=== PATIENT | male | born 1985 | race Caucasian/White ===

== ENCOUNTER 2019-02-20 20:53 | Emergency (ER) | payer OTHER ==
[2019-02-20 21:11] VITALS: BP 162/107; TEMP 98.5; BMI 24.8
[2019-02-20 21:27] VITALS: PULSE 119
--- NOTE | 2019-02-20 21:28 | PDOC ---
Rapid Medical Evaluation Chief Complaint: Substance Abuse Time Seen by Provider: 02/20/19 21:02 Medical Evaluation: Vital Signs Temp Pulse Resp BP Pulse Ox 98.5 F 19 L 19 162/107 H 100 02/20/19 21:09 02/20/19 21:09 02/20/19 21:02/20/19 21:02/20/19 21:02/20/19 21:25 I have performed a brief in-person evaluation of this patient. The patient presents with a chief complaint of:diaphoresis w/ dizziness and chills today. H/o ETOH abuse, last drank today and possible ingested crystal meth Pertinent physical exam findings:tachy and hypertensive I have ordered the following:ekg/labs The patient will proceed to the ED for further evaluation. Discharge Disposition - Diagnosis Diaphoresis - Referrals - Patient Instructions - Post Discharge Activity
--- NOTE | 2019-02-20 21:36 | PDOC ---
History of Present Illness - General Chief Complaint: Substance Abuse Stated Complaint: INTOX Time Seen by Provider: 02/20/19 21:02 History Source: Patient Exam Limitations: No Limitations, Intoxication - History of Present Illness Initial Comments: Alin Baeza is a 33 yo M who denies having any pmh who presents to the [facility] ER as a walk in with the chief complaint of intoxication. The patient states he ingested a crystalized pill of ecstacy at 7 pm tonight and came into the Er because he felt extremely hot, dehydrated, would not stop sweating, felt agitated, felt like his heart was beating fast and he was experiencing palpitations. The patient also smoked one joint of marijuana this morning, and had 2 beers today. Patient states he cannot stop drinking water but feels like his mouth is dry. He is nervous that something is wrong with him. Patient denies experiencing any seizures, chest pain, SOB, difficulty breathing , syncope, other illicit co-ingestions, headache, nausea, vomiting, blurry vision, weakness, numbness, tingling, chills, dysuria, frequency, or urgency. PCP: None PSH: None reported Social Hx: Took ecstacy today, drinks a few beers daily, smokes marijuana daily , uses adderall regularly. Allergies: Pollen, NKDA Past History - Past Medical History COPD: No - Suicide/Smoking/Psychosocial Hx Smoking History: Unknown if ever smoked Hx Alcohol Use: Yes Drug/Substance Use Hx: Yes Review of Systems - Review of Systems Able to Perform ROS?: Yes Comments:: CONSTITUTIONAL: Present: diaphoresis Absent: fever, chills, generalized weakness, malaise, loss of appetite HEENT: Present: dry mouth Absent: rhinorrhea, nasal congestion, throat pain, throat swelling, difficulty swallowing, mouth swelling, ear pain, eye pain, visual Changes CARDIOVASCULAR: Present: Palpitations, lightheadedness Absent: chest pain, syncope, irregular heart rate, peripheral edema RESPIRATORY: Absent: cough, shortness of breath, dyspnea with exertion, orthopnea, wheezing, stridor, hemoptysis GASTROINTESTINAL: Absent: abdominal pain, abdominal distension, nausea, vomiting, diarrhea, constipation, melena, hematochezia GENITOURINARY: Absent: dysuria, frequency, urgency, hesitancy, hematuria, flank pain, genital pain MUSCULOSKELETAL: Absent: myalgia, arthralgia, joint swelling SKIN: Absent: rash, itching, pallor HEMATOLOGIC/IMMUNOLOGIC: Absent: easy bleeding, easy bruising, lymphadenopathy, frequent infections ENDOCRINE: Absent: unexplained weight gain, unexplained weight loss, heat intolerance, cold intolerance NEUROLOGIC: Absent: headache, focal weakness or paresthesias, dizziness, unsteady gait, seizure, mental status changes, bladder or bowel incontinence PSYCHIATRIC: Present: Anxiety Absent: depression, suicidal or homicidal ideation, hallucinations. *Physical Exam - Vital Signs Last Vital Signs Temp Pulse Resp BP Pulse Ox 98.5 F 119 H 19 162/107 H 100 02/20/19 21:09 02/20/19 21:09 02/20/19 21:09 02/20/19 21:09 02/20/19 21:09 - Physical Exam Comments: GENERAL: Patient is profusely diaphoretic. Well developed, well nourished. Awake and alert. No acute distress. HEENT: Pupils are very dilated. Dry mouth. Normocephalic, atraumatic. PERRLA, EOMI. No conjunctival pallor. Sclera are non-icteric. Oropharynx is clear. NECK: Supple. Full ROM. No JVD. No thyromegaly. No lymphadenopathy. CARDIOVASCULAR: Tachycardic rate and regular rhythm. No murmurs, rubs, or gallops. Distal pulses are 2+ and symmetric. PULMONARY: No evidence of respiratory distress. Lungs clear to auscultation bilaterally. No wheezing, rales or rhonchi. ABDOMINAL: Hyperactive bowel sounds. Soft. Non-tender. Non-distended. No rebound or guarding. No organomegaly. MUSCULOSKELETAL Normal range of motion at all joints. No bony deformities or tenderness. No CVA tenderness. EXTREMITIES: No cyanosis. No clubbing. No edema. No calf tenderness. SKIN: Profusely diaphoretic. Warm. Normal capillary refill. No rashes. No jaundice. NEUROLOGICAL: Alert, awake, appropriate. Cranial nerves 2-12 intact. No deficits to light touch in face, upper extremities and lower extremities. No motor deficits in the in face, upper extremities and lower extremities. Normal speech. Gait is normal without ataxia. PSYCHIATRIC: Mildly anxious. Cooperative. Good eye contact. Appropriate mood and affect. Heart Score/ECG Review - ECG Intrepretation Rhythm: Regular Rhythm - Monrovia Monrovia: Right [place] Deviation - P and WI Prominent R with upright T in V1 (true posterior ID): No Delta Wave(s) Present: No WPW: No - QRS Poor R Wave Progression: No Q Wave Present: No - ST and T Early Repolarization: Yes Non Specific ST-T Wave changes: No Flattened T Waves: No Prolonged Q-T Interval: No - ECG Impressions Normal ECG: No Non-specific ST Elevation: No Ischemic Changes: No Torsades carolyn Pointes: No WPW: No ED Treatment Course - LABORATORY CBC & Chemistry Diagram: 02/20/19 22:00 02/20/19 22:00 Medical Decision Making - Medical Decision Making Alin Baeza is a 33 yo M who denies having any pmh who presents to the [facility] ER as a walk in with the chief complaint of intoxication. The patient states he ingested a crystalized pill of ecstacy at 7 pm tonight and came into the Er because he felt extremely hot, dehydrated, would not stop sweating, felt agitated, felt like his heart was beating fast and he was experiencing palpitations. The patient also smoked one joint of marijuana this morning, and had 2 beers today. Patient states he cannot stop drinking water but feels like his mouth is dry. He is nervous that something is wrong with him. Vital Signs Temp Pulse Resp BP Pulse Ox 98.5 F 119 H 19 162/107 H 100 02/20/19 21:09 02/20/19 21:09 02/20/19 21:09 02/20/19 21:09 02/20/19 21:09 - Repeat HR at bedside 77 after 1L NS DDx IBNLT: electrolyte/metabolic disturbance, dehydration, hyponatremia, SIADH, hyperthermia, Serotonin syndrome, hyperthermia, seizures, hallucinations. Plan: Labs, Urine, EKG, IV hydration, libirum, re-assess. Labs: Normal with no acute abnormalities. Normal sodium level. No evidence of dehydration. Urine: Clean with no abnormalities or signs of acute infection. Urine tox: Positive for marijuana, amphetamines, and ecstacy EKG: NS rate of 71, narrow complexes, RAD, no hypertrophy, no ST elevations or depressions, no abnormal TWI, WI - 192, QTc - 434. Re-assess: Patient no longer feels agitated, has no more palpitations, is not sweating anymore, does not feel hot or overheated, is urinating and no longer feels dehydrated. Disposition: Home with PCP fu. - Strict return precautions - Drug abuse counsil provided. *DC/Admit/Observation/Transfer Diagnosis at time of Disposition: Diaphoresis, Ecstasy abuse, Tachycardia, Agitation, Anxiety about health Hypertension Qualifiers: Hypertension type: other secondary hypertension Qualified Code(s): I15.8 - Other secondary hypertension - Discharge Dispostion Disposition: HOME Condition at time of disposition: Improved Decision to Admit order: No - Referrals Referrals: [facility] [place] [facility] [Provider Group] - Patient Instructions Printed Discharge Instructions: Lifestyle Changes as Effective as Drugs in Preventing Progression to Diabet, Are You Taking Drugs You Don't Need?, Drugs That May Lead to Heart Damage, DI for Adverse Drug Reaction -- Allergic Additional Instructions: You came into the ER after taking ecstacy. We looked at your blood and urine and found no abnormalities. We gave you IV hydration to make sure you are not dehydrated. We also did an electrocardiogram which showed that you have what is called a rightward heart axis. This is probably not something to worry about at the present time but it is something that is important to follow up with with your doctor. We handed you a copy of your EKG to give to your doctor and discuss this EKG with your primary care doctor in the next 3 to 5 days. Please do your best to stop using illicit drugs. If you would like to goto a de- tox center come back at anytime and we will direct you to one. We are giving you the number for a primary doctor to call up and establish care with. Please make sure to call up the number we are providing you with and set up an appointment. Come back to the ER immediately if your symptoms worsen, you have chest pain, have a seizure, hallucinate, feel extremely anxious or agitated, or have any other new or worsening concerns. Thank you for coming to the [facility] ER. We hope you feel better soon! Print Language: SWEDISH - Post Discharge Activity
[2019-02-20] MEDS ORDERED: chlordiazePOXIDE HCL 25 MG CAPSULE PO ONE (21:45)
[2019-02-20] MEDS ORDERED: SODIUM CHLORIDE 0.9% 500 ML INFUS.BAG IV ONE (21:45)
[2019-02-20] MEDS ORDERED: chlordiazePOXIDE HCL 25 MG CAPSULE ONE (22:14)
[2019-02-20 22:19] LABS: BASO % 0.3 % (0-2.0); EOS % 2.3 % (0-4.5); HEMATOCRIT 45.8 % (35.4-49); HEMOGLOBIN 15.7 GM/dL (11.7-16.9); LYMPH % 32.3 % (8-40); MCH 31.3 pg (25.7-33.7); MCHC 34.3 g/dl (32.0-35.9); MEAN CELL VOLUME 91.2 fl (80-96); MEAN PLT VOLUME 8.9 fl (7.5-11.1); MONO % 14.3 % (3.8-10.2); NEUT % 50.8 % (42.8-82.8); PLATELET COUNT 225 K/MM3 (134-434); RBC 5.02 M/mm3 (4.00-5.60); RDW 13.3 % (11.9-15.9); WHITE BLOOD COUNT 7.4 K/mm3 (4.0-10.0)
[2019-02-20 22:33] LABS: INR 0.96 (0.83-1.09); PROTHROMBIN TIME (PATIENT) 11.3 SEC (9.7-13.0)
[2019-02-20] MEDS ORDERED: DEXTROSE 5%-NORMAL SALINE 1,000 ML IV ONE (22:36)
[2019-02-20 22:43] LABS: EPI CELLS 0.2 /HPF (0-5/HPF); HYALINE CASTS 8 /lpf (0-8); PH,URINE 6.5 (5.0-8.0); URINE APPEARANCE TURBID; URINE BACTERIA 6.3 /hpf (NEGATIVE); URINE BILIRUBIN NEGATIVE (NEGATIVE); URINE COLOR YELLOW; URINE GLUCOSE (UA) NEGATIVE (NEGATIVE); URINE KETONE NEGATIVE (NEGATIVE); URINE LEUK ESTERASE NEGATIVE (NEGATIVE); URINE NITRITE NEGATIVE (NEGATIVE); URINE PROTEIN NEGATIVE (NEGATIVE); URINE RBC 2 /hpf (0-4); URINE UROBILINOGEN 0.2 mg/dL (0.2-1.0); URINE WBC 0 /hpf (0-5)
[2019-02-20 22:44] LABS: ALBUMIN 4.2 g/dl (3.4-5.0); BILIRUBIN,TOTAL 0.3 mg/dL (0.2-1); BLOOD UREA NITROGEN 12.9 mg/dL (7-18); CREATININE 1.2 mg/dL (0.55-1.3); POTASSIUM 4.2 mmol/L (3.5-5.1); TOT PROT 7.8 g/dl (6.4-8.2)
--- NOTE | 2019-02-20 23:11 | PDOC ---
Documentation entered by Shiraz Sharma SCRIBE, acting as scribe for Francisco Javier Muñoz MD. Francisco Javier Muñoz MD: This documentation has been prepared by the archieeZachary Elijah, SCRIBE, under my direction and personally reviewed by me in its entirety. I confirm that the documentation accurately reflects all work, treatment, procedures, and medical decision making performed by me. Attending Attestation - Resident Resident Name: Alexandro Hanson - ED Attending Attestation I have performed the following: I have examined & evaluated the patient, The case was reviewed & discussed with the resident, I agree w/resident's findings & plan, Exceptions are as noted - HPI HPI: 02/20/19 22:53 Patient is a 33 year old male with no reported past medical history who presents to the ED with intoxication. Patient reports taking ecstasy x3 hours ago and began to feel agitated, hot, sweaty, dehydrated, and feel his heart racing. Patient was worried that there was becoming anxious after taking these drugs which prompted the visit to the ED. Patient also noted he smoked a joint of marijuana and drank 2 beers today. Denies cough, sob, headache, nausea, and vomiting. Allergies: NKDA Social History: Uses Marijuana and Adderall regularly - Physicial Exam PE: 02/20/19 22:56 GENERAL: Awake, alert, and fully oriented, in no acute distress. Anxious. Mildly diaphoretic. HEAD: No signs of trauma. Pupils dilated but reactive. ENT: Hearing grossly normal. NECK: Normal ROM. Supple. LUNGS: Breath sounds equal, clear to auscultation bilaterally. No wheezes, and no crackles HEART: Regular rate and rhythm, normal S1 and S2, no murmurs, rubs or gallops ABDOMEN: Soft, nontender. No guarding, no rebound. EXTREMITIES: Normal range of motion, no edema. No clubbing or cyanosis. No cords, erythema, or tenderness NEUROLOGICAL: Cranial nerves II through XII grossly intact. Normal speech. SKIN: Warm, Dry. No rashes or lesions noted. - Medical Decision Making 02/20/19 23:05 A portion of this note was documented by [employer] under my direction. I have reviewed the details of the note, within reason, and agree with the documentation with the following case summary and management plan written by me. Patient treated in the ED. Nursing notes are reviewed and incorporated into the medical decision-making. Vital signs reviewed. Peripheral IV access obtained by the nurse, laboratory studies are drawn and sent, reviewed and interpreted by myself. Vital Signs Temp Pulse Resp BP Pulse Ox 98.5 F 119 H 19 162/107 H 100 02/20/19 21:09 02/20/19 21:09 02/20/19 21:09 02/20/19 21:09 02/20/19 21:09 This is a 33-year-old male with multiple poly-ingestions including ecstasy, alcohol and marijuana. The patient is intoxicated medications but otherwise not agitated at this moment. Patient has dilated pupils tachycardia high, hypertension, diaphoresis consistent with sympathomimetic features. I agree with the plan to give is a denies pains in monitor patient and draw blood work. Once the patient is sober the patient be discharged home if the workup is unremarkable. 02/20/19 23:39 Pt is much more sober and alert and ambulatory. He is requesting to go home with his friend. CBC, BMP 02/20/19 22:00 02/20/19 22:00 CMP Sodium 136 mmol/L (136-145) 02/20/19 22:00 Potassium 4.2 mmol/L (3.5-5.1) 02/20/19 22:00 Chloride 101 mmol/L (98-107) 02/20/19 22:00 Carbon Dioxide 28 mmol/L (21-32) 02/20/19 22:00 Anion Gap 8 MMOL/L (8-16) 02/20/19 22:00 BUN 12.9 mg/dL (7-18) 02/20/19 22:00 Creatinine 1.2 mg/dL (0.55-1.3) 02/20/19 22:00 Est GFR (CKD-EPI)AfAm 91.53 02/20/19 22:00 Est GFR (CKD-EPI)NonAf 78.97 02/20/19 22:00 Random Glucose 103 mg/dL (74-106) 02/20/19 22:00 Calcium 9.0 mg/dL (8.5-10.1) 02/20/19 22:00 Total Bilirubin 0.3 mg/dL (0.2-1) 02/20/19 22:00 AST 34 U/L (15-37) 02/20/19 22:00 ALT 36 U/L (13-61) 02/20/19 22:00 Alkaline Phosphatase 73 U/L (45-117) 02/20/19 22:00 Creatine Kinase 219 U/L (26-308) 02/20/19 22:00 Creatine Kinase Index 0.4 % (0.0-5.0) 02/20/19 22:00 CK-MB (CK-2) < 1.0 ng/mL (0.5-3.6) 02/20/19 22:00 Troponin I < 0.02 ng/ml (0.00-0.05) 02/20/19 22:00 Total Protein 7.8 g/dl (6.4-8.2) 02/20/19 22:00 Albumin 4.2 g/dl (3.4-5.0) 02/20/19 22:00 Urine Test Results Urine Color Yellow 02/20/19 22:32 Urine Appearance Turbid 02/20/19 22:32 Urine pH 6.5 (5.0-8.0) 02/20/19 22:32 Ur Specific [place] 1.019 (1.010-1.035) 02/20/19 22:32 Urine Protein Negative (NEGATIVE) 02/20/19 22:32 Urine Glucose (UA) Negative (NEGATIVE) 02/20/19 22:32 Urine Ketones Negative (NEGATIVE) 02/20/19 22:32 Urine Blood Trace (NEGATIVE) 02/20/19 22:32 Urine Nitrite Negative (NEGATIVE) 02/20/19 22:32 Urine Bilirubin Negative (NEGATIVE) 02/20/19 22:32 Ur Leukocyte Esterase Negative (NEGATIVE) 02/20/19 22:32 02/20/19 23:39 Drug screen positive amphetamines and marijuana Heart Score/ECG Review #1 ECG reviewed & interpreted by me at: 23:00 02/20/19 23:03 NSR 71, rightward axis, normal intervals, no std/mauri, QTC 434 msec
[2019-02-20 23:14] LABS: COCAINE, UR NEGATIVE ng/ml (CUTOFF=300); METHADONE, UR NEGATIVE ng/ml (CUTOFF=300); OPIATES, URI NEGATIVE ng/ml (CUTOFF=300); PHENCYCLIDINE,URINE NEGATIVE ng/ml (CUTOFF=25); URINE BARBITURATES NEGATIVE ng/ml (CUTOFF=200); URINE BENZODIAZEPINES NEGATIVE ng/ml (CUTOFF=200)
[2019-02-20 23:20] LABS: URINE AMPHETAMINES POSITIVE ng/ml (CUTOFF=500)
--- NOTE | 2019-02-22 00:04 | EKG ---
Test Reason : Blood Pressure : / mmHG Vent. Rate : 071 BPM Atrial Rate : 071 BPM P-R Int : 192 ms QRS Dur : 106 ms QT Int : 400 ms P-R-T Axes : 061 090 059 degrees QTc Int : 434 ms NORMAL SINUS RHYTHM RIGHTWARD AXIS BORDERLINE ECG NO PREVIOUS ECGS AVAILABLE Confirmed by CHARI GARZA, MESHA ([id number]) on 02/22/2019 12:04:24 AM Referred By: Confirmed By:MESHA MARCELINO MD
== END 2019-02-21 00:13 | disposition home or self-care (01) ==
LOC: JER 20:53
PROC: 3E0337Z Introduction of Electrolytic and Water Balance Substance into Peripheral Vein, Percutaneous Approach (ICD-10-PCS; principal; 2019-02-20)
DX: I15.8 Other secondary hypertension (principal); R00.0 Tachycardia, unspecified; F19.129 Other psychoactive substance abuse with intoxication, unspecified; F41.9 Anxiety disorder, unspecified
CPT/HCPCS: 36415; 80053; 80307; 81003; 82550; 82553; 84484; 85025; 85610; 93005; 93010; 99283-25; G0480

== ENCOUNTER 2021-03-30 01:03 | Emergency (ER) | payer OTHER ==
[2021-03-30 02:51] VITALS: BP 116/84; PULSE 89; TEMP 98.1; BMI 25.7
[2021-03-30] MEDS ORDERED: LIDOCAINE 5% TOPICAL PATCH TP ONE (02:55)
[2021-03-30] MEDS ORDERED: LIDOCAINE PATCH REMOVAL MC ONE (15:00)
== END 2021-03-30 06:59 | disposition left against medical advice (07) ==
LOC: JER 01:03
DX: M54.5 Low back pain (principal)
CPT/HCPCS: 99281-25

== ENCOUNTER 2022-12-31 19:24 | Emergency (ER) | payer OTHER ==
[2022-12-31] MEDS ORDERED: FLUORESCEIN NA 1 EA STRIP ONE (19:40)
[2022-12-31 19:50] VITALS: BP 135/85; PULSE 76; RESP 15; TEMP 98.4; BMI 25.1
[2022-12-31] MEDS ORDERED: TETRACAINE 0.5% OPHTH SOLN 2 ML BOTTLE TP ONE (19:52)
[2022-12-31] MEDS ORDERED: FLUORESCEIN NA 1 EA STRIP OS ONE (19:53)
[2022-12-31] MEDS ORDERED: TOBRA 0.3%/DEXAMETH 0.1% OPHTHALMIC SUSP 2.5 ML BTL OS SCH (22:00)
== END 2022-12-31 20:12 | disposition home or self-care (01) ==
LOC: FER 19:24
DX: H57.12 Ocular pain, left eye (principal); H18.892 Other specified disorders of cornea, left eye
CPT/HCPCS: 99283-25